=== PATIENT | female | born 2000 | race Caucasian/White ===

== ENCOUNTER 2023-08-14 19:41 | Emergency (ER) | payer BC, OTHER ==
[2023-08-14] MEDS ORDERED: Lidocaine 1% w/Epinephrine 1:100K 20 ML VIAL ONE (20:42)
[2023-08-14] MEDS ORDERED: Acetaminophen 500 MG TAB ONE (21:10)
[2023-08-14] MEDS ORDERED: Boostrix 0.5 ML (Tdap) VIAL (>/=7 yrs of age) ONE (21:10)
[2023-08-14] MEDS ORDERED: Bacitracin 1 PK ONE (21:24)
== END 2023-08-14 21:35 ==
LOC: ERS 19:41
DX: S09.90XA Unspecified injury of head, initial encounter (principal); S51.011A Laceration without foreign body of right elbow, initial encounter; M25.551 Pain in right hip; W06.XXXA Fall from bed, initial encounter; Y93.01 Activity, walking, marching and hiking; Y92.149 Unspecified place in prison as the place of occurrence of the external cause; Z23 Encounter for immunization; Z79.899 Other long term (current) drug therapy
CPT/HCPCS: 12001; 70450; 72125; 90471; 90715